=== PATIENT | male | born 1985 | race Caucasian/White ===

== ENCOUNTER 2020-06-26 22:01 | Inpatient (IN) | payer OTHER, SELFPAY ==
[~2020-06-26] VITALS: Ht 177.8 cm; Wt 111.6 kg
[2020-06-26 22:01] VITALS: BP_SYST 132
[~2020-06-26 22:01] MED LIST: BUSP5TAB3 PO; FOLI-43 PO; MULT-33 PO; PRO40 PO; TRAZ150T77 PO; Thiamine Hcl PO
--- NOTE | 2020-06-26 22:43 | NUR ---
ER Dr. PALACIOS at bedside examining patient.
[2020-06-26] MEDS ORDERED: NACL 0.9% 1,000 ML IV ONE ×2 (23:00)
[2020-06-26] MEDS ORDERED: ONDANSETRON HCL 4 MG/2 ML VIAL IVP ONE (23:00)
[2020-06-26] MEDS ORDERED: LORazepam 2 MG/ML VIAL IVP ONE (23:00)
[2020-06-26] MEDS ORDERED: IBUPROFEN 400 MG TABLET PO ONE (23:00)
[2020-06-26] MEDS ORDERED: cefTRIAXone 1 GM in D5W 50 ML IV ONE (23:30)
[2020-06-27 00:36] LABS: HEMOGLOBIN 11.5 g/dL (14.0-18.0)
[2020-06-27 00:42] LABS: BASOPHILS # (AUTO) 0.1 K/uL (0.0-0.2); BASOPHILS % (AUTO) 1.3 % (0.0-2.0); EOSINOPHILS # (AUTO) 0.2 K/uL (0.0-0.4); EOSINOPHILS % (AUTO) 4.6 % (0.0-4.0); HEMATOCRIT 33.7 % (36-54); LYMPHOCYTES # (AUTO) 0.7 K/uL (1.0-5.5); LYMPHOCYTES % (AUTO) 16.7 % (20.5-51.5); MEAN CORPUSCULAR HEMOGLOBIN 35 pg (27-31); MEAN CORPUSCULAR HGB CONC 34 % (32-36); MEAN CORPUSCULAR VOLUME 103 fL (79.0-98.0); MONOCYTES # (AUTO) 0.4 K/uL (0.0-1.0); NEUTROPHILS % (AUTO) 68.4 % (40.0-70.0); RED BLOOD CELL COUNT(AUTO) 3.28 MIL/uL (4.2-6.2); RED CELL DISTRIBUTION WIDTH 18.7 % (9.0-15.0); WHITE BLOOD COUNT (AUTO) 4.4 K/uL (4.8-10.8)
[2020-06-27 00:52] LABS: CALCIUM 7.5 mg/dL (8.4-11.0); CREATININE 0.53 mg/dL (0.55-1.30); POTASSIUM 3.1 mmol/L (3.5-5.1)
[2020-06-27 01:02] LABS: PLATELET COUNT (AUTO) 40 K/uL (130-430)
--- NOTE | 2020-06-27 01:02 | NUR ---
critical lab reporting - platelets 40. md aware.
[2020-06-27 01:04] LABS: ALBUMIN 2.4 g/dL (3.4-4.8); TOTAL BILIRUBIN 10.2 mg/dL (0.0-1.0)
--- NOTE | 2020-06-27 02:02 | NUR ---
COVID SWAB COLLECTED AND SENT TO LAB.
--- NOTE | 2020-06-27 02:42 | NUR ---
Patient will be admitted to care of [facility]. Admitted to MEDSURG unit. Will go to room PENDING. Belongings list completed. Complete and up to date summary report printed. SBAR report to be given at bedside with opportunity for questions.
--- NOTE | 2020-06-27 02:42 | NUR ---
RECEIVED ADMIT ORDERS FROM DR. RAM.
[2020-06-27] MEDS ORDERED: FOLIC ACID 1 MG, THIAMINE HCL 100 MG, MAGNESIUM SULFATE 1 GM, MVI 10 ML in NACL 0.9% 1,... IV ONE (02:45)
[2020-06-27] MEDS ORDERED: LORazepam 2 MG/ML VIAL IVP PRN ×2 (02:45→13:45)
[2020-06-27 09:30] LABS: INR 1.8 (0.80-1.20); PROTHROMBIN TIME 17.8 SECS (9.5-12.5)
--- NOTE | 2020-06-27 11:30 | NUR ---
CHRISTIANO TO ASSUME CARE, PT HERE FOR ETOH WITHDRAWL. SKIN JAUNDICED, CLEAR MENTATION AND SPEECH, EASILY AROUSED, [id number]
--- NOTE | 2020-06-27 12:20 | NUR ---
EASILY AROUSED, RESP UNLABORED, NO DISTRESS, CLEAR MENTATION
[2020-06-27 12:50] LABS: BARBITURATE, URINE NEGATIVE (NEG <=200); BENZODIAZEPINE, URINE POSITIVE (NEG <=150); CANNABINOID, URINE NEGATIVE (NEG <=50); COCAINE, URINE NEGATIVE (NEG <=150); METHAMPHETAMINES SCREEN,URINE NEGATIVE (NEG <=500); OPIATE, URINE NEGATIVE (NEG <=100); PHENCYCLIDINE SCREEN,URINE NEGATIVE (NEG <=25); UR TRICYCLIC ANTIDEPRESSANTS NEGATIVE (NEG <=300); URINE AMPHETAMINE NEGATIVE (NEG <=500); URINE METHADONE NEGATIVE (NEG <=200); URINE OXYCODONE SCREEN NEGATIVE (NEG <=100); URINE PROPOXYPHENE SCREEN NEGATIVE (NEG <=300)
[2020-06-27] MEDS ORDERED: FOLIC ACID 5 MG/ML VIAL IV ONE (13:21)
[2020-06-27] MEDS ORDERED: MVI 10 ML VIAL IV ONE (13:21)
[2020-06-27] MEDS ORDERED: THIAMINE HCL 100 MG/ML VIAL ONE (13:21)
[2020-06-27] MEDS ORDERED: MAGNESIUM SULFATE 1 GM/2 ML VIAL ONE (13:21)
[2020-06-27] MEDS ORDERED: cefTRIAXone 1 GM VIAL ONE (13:23)
[2020-06-27] MEDS ORDERED: IBUPROFEN 400 MG TABLET ONE (13:28)
[2020-06-27] MEDS ORDERED: NALOXONE HCL 0.4 MG/ML AMP (NARCAN) IVP PRN ×2 (13:45)
[2020-06-27] MEDS ORDERED: ACETAMINOPHEN 325 MG TABLET PO PRN (13:45)
[2020-06-27] MEDS ORDERED: HYDROcodone/ACETAMIN 5-325 MG TAB (NORCO/ VICODIN) PO PRN (13:45)
[2020-06-27] MEDS ORDERED: ONDANSETRON HCL 4 MG/2 ML VIAL IVP PRN (13:45)
[2020-06-27] MEDS ORDERED: HYDROcodone/ACETAMIN 10-325 MG TAB PO PRN (13:45)
--- NOTE | 2020-06-27 13:55 | NUR ---
DR RAM IN TO ASSESS
--- NOTE | 2020-06-27 15:48 | NUR ---
CALM, EASILY AROUSED, SLOW TO RESPOND, RESP UNLABORED,
[2020-06-27] MEDS ORDERED: chlordiazePOXIDE HCL 25 MG CAPSULE ONE (18:00)
[2020-06-27] MEDS: chlordiazePOXIDE HCL 25 MG CAPSULE PO SCH ×2 (18:00→21:52)
--- NOTE | 2020-06-27 18:05 | NUR ---
Patient will be admitted to care of [facility]. Admitted to M/S unit. Will go to room 104. Belongings list completed. Complete and up to date summary report printed. SBAR report to be given at bedside with opportunity for questions.
--- NOTE | 2020-06-27 18:33 | NUR ---
Admission Note Received patient from ER with diagnosis of Alcohol Withdrawal. Initial Plan of Care discussed-patient verbalized his understanding. Oriented to room, call light, pain management and safety. Call light within reach.
--- NOTE | 2020-06-27 19:50 | NUR ---
Opening note Received resting in bed, eyes closed, easy to arouse, no distress. Non labored breathing on 2L NC w/oxygen saturation at 94%. V/S taken and stable. Bed is locked in lowest position, side rails up 2x, bed alarm on and call light w/in reach. Updated board.
[2020-06-27 21:07] VITALS: BP_SYST 134
[2020-06-27] MEDS ORDERED: FLU VACC QS2020-21 (6 mos & up) 0.5 ML/SYRINGE I.M. PRN (21:30)
[2020-06-27] MEDS: busPIRone HCL 5 MG TABLET PO SCH (21:51)
[2020-06-27] MEDS: traZODone HCL 50 MG TABLET (DESYREL) PO SCH (21:52)
[2020-06-27] MEDS: PANTOPRAZOLE SODIUM 40 MG TAB PO SCH (21:52)
--- NOTE | 2020-06-27 21:52 | NUR ---
Meds, phys assessment Phys assessment complete. Due meds given, reviewed side effects and he verbalized understanding. I explained bed alarm for safety and he agreed to have it on. Requested additional blanketl; provided.
--- NOTE | 2020-06-27 23:58 | NUR ---
sleeping Patient resting w/eyes closed, no distress, non labored breathing. will continue to monitor.
--- NOTE | 2020-06-28 02:40 | NUR ---
urinal Patient awake, voided in urinal and emptied 600ml will ua. Fire alarm was on and loud a few minutes, though no longer on he requested door closed.
--- NOTE | 2020-06-28 04:30 | NUR ---
sleeping Patient resting w/ eyes closed, no distress and non labored breathing. Call light w/in reach.
[2020-06-28 05:15] VITALS: BP_SYST 120
--- NOTE | 2020-06-28 05:15 | NUR ---
v/s patient was momentarily awakened for V/S which are stable, he denies pain. Pictures taken. He wants a snack (provided) and wants to sleep. He said will save flu shot later in morning.
--- NOTE | 2020-06-28 06:29 | NUR ---
CONSULT REASON FOR CONSULT: PANYCTOPENIA DR. PEÑA CAME AND SAW THE PATIENT. CONSULTATION NOTES WERE PUT IN.
--- NOTE | 2020-06-28 07:10 | NUR ---
closing note endorsed report, patient stable, calm and resting in bed, no distress. He pulled out his IV and presently no IV access.
[2020-06-28] MEDS: busPIRone HCL 5 MG TABLET PO SCH ×2 (08:07→20:29)
[2020-06-28] MEDS: MULTIVITS,CA,MINERALS/IRON/FA 1 TABLET PO SCH (08:08)
[2020-06-28] MEDS: PANTOPRAZOLE SODIUM 40 MG TAB PO SCH ×2 (08:08→20:23)
[2020-06-28] MEDS: chlordiazePOXIDE HCL 25 MG CAPSULE PO SCH ×3 (08:08→20:23)
[2020-06-28] MEDS: FOLIC ACID 1 MG TABLET PO SCH (08:08)
[2020-06-28] MEDS: THIAMINE HCL 100 MG TABLET PO SCH (08:09)
[2020-06-28 08:15] VITALS: BP_SYST 125
[2020-06-28 09:36] LABS: ALBUMIN 2.1 g/dL (3.4-4.8); CALCIUM 7.6 mg/dL (8.4-11.0); CREATININE 0.48 mg/dL (0.55-1.30); PHOSPHORUS 2.6 mg/dL (2.7-4.5); POTASSIUM 3.6 mmol/L (3.5-5.1); TOTAL BILIRUBIN 11.2 mg/dL (0.0-1.0)
[2020-06-28 09:55] LABS: CORRECTED WHITE BLOOD COUNT 3.6 K/uL (4.5-11.0); RED BLOOD CELL COUNT(AUTO) 3.11 MIL/uL (4.2-6.2); WHITE BLOOD COUNT (AUTO) 3.6 K/uL (4.8-10.8)
[2020-06-28 09:56] LABS: HEMATOCRIT 32.2 % (36-54); HEMOGLOBIN 11.2 g/dL (14.0-18.0); MEAN CORPUSCULAR HEMOGLOBIN 36 pg (27-31); MEAN CORPUSCULAR HGB CONC 35 % (32-36); MEAN CORPUSCULAR VOLUME 104 fL (79.0-98.0); RED CELL DISTRIBUTION WIDTH 18.2 % (9.0-15.0)
[2020-06-28 09:57] LABS: BASOPHILS % (AUTO) 0.7 % (0.0-2.0); EOSINOPHILS # (AUTO) 0.2 K/uL (0.0-0.4); EOSINOPHILS % (AUTO) 5.6 % (0.0-4.0); LYMPHOCYTES # (AUTO) 0.7 K/uL (1.0-5.5); LYMPHOCYTES % (AUTO) 20.4 % (20.5-51.5); MONOCYTES # (AUTO) 0.3 K/uL (0.0-1.0); MONOCYTES % (AUTO) 8.3 % (1.7-9.3); NEUTROPHILS # (AUTO) 2.4 K/uL (1.8-7.7)
[2020-06-28 09:58] LABS: RETICULOCYTE COUNT 3.4 % (0.5-1.5)
--- NOTE | 2020-06-28 10:03 | NUR ---
Dr. Zenaida Kitchen for critical lab result platelets 31
--- NOTE | 2020-06-28 10:56 | NUR ---
IV RE-INSERTION: IV cannula accidentally removed business change manager site. Restarted on left wrist g24. . Successful after 3 attempts. Will observe for any signs of infiltration.
[2020-06-28 11:06] VITALS: BP_SYST 125
--- NOTE | 2020-06-28 11:58 | NUR ---
Nutrition Update Eze Scale 18 noted. Pt admitted for alcohol withdrawal. Diet: regular BMI: 35.3 kg/m2 RD to follow per nutrition care standards.
[2020-06-28 12:56] LABS: PLATELET COUNT (AUTO) 31 K/uL (130-430)
--- NOTE | 2020-06-28 13:08 | NUR ---
DR. Carreno is aware regarding the bruising in left flank.
[2020-06-28] MEDS: prednisoLONE 15 MG/5 ML UDC PO SCH (14:19)
[2020-06-28] MEDS ORDERED: NA PHOS 15 MM in NS 250 ML IV ONE (14:30)
[2020-06-28 15:00] VITALS: BP_SYST 102
--- NOTE | 2020-06-28 15:59 | NUR ---
Patient sleeping most of the time cooperative follow instruction, safety/fall /seizure precaution initiated
--- NOTE | 2020-06-28 19:35 | NUR ---
Opening note Received patient awake, resting in bed, no distress and watching t.v. Non labored breathing on RA, with saturation at 95%. V/S taken and stable. Presently denies pain. Bed is locked in lowest position, side rails up 2x, bed alarm on, seizure pad on, and call light w/in reach. Updated board and reviewed plan of care.
[2020-06-28 20:00] VITALS: BP_SYST 126
[2020-06-28] MEDS: traZODone HCL 50 MG TABLET (DESYREL) PO SCH (20:23)
--- NOTE | 2020-06-28 20:34 | NUR ---
Meds Due meds givenl; patient took meds with water. Patient agreed to flu shot and it was given along with information regarding side effects and written hand out, he verbalized understanding. Buspar was not administered d/t it was not available in pyxis. This medication is in eMar as scheduled med, yet it does not populate in medication pyxis. It was not in medication cubby either (yesterday it was in medication cubby). I called pharmacy and spoke w/ Lang. He re-entered med and it still did not appear/populate in pyxis.
--- NOTE | 2020-06-28 23:45 | NUR ---
Resting Patient resting quietly and no distress noted. Non labored breathing, call light w/in reach.
--- NOTE | 2020-06-29 01:41 | NUR ---
rounds/sleeping Patient resting w/eyes closed, no distress noted. Non labored breathing. Emptied 600 ml of will/orange UA from urinal. Call light w/in reach, safety and seizure precautions in place.
[2020-06-29 04:31] VITALS: BP_SYST 110
--- NOTE | 2020-06-29 04:31 | NUR ---
rounds, V/S Patient resting w/eyes closed, no distress noted and non labored breathing. Momentarily awakened for V/S B/P 110/53. Denies pain and has no requests. Call light w/in reach, safety and seizure precautions in place.
--- NOTE | 2020-06-29 06:50 | NUR ---
closing note Patient resting in bed, w/eyes closed, no distress, Non labored breathing on RA., Safety and seizure precautions maintained and call light w/in reach. Needs met throughout shift, will endorse care to day shift nurse.
[2020-06-29] MEDS ORDERED: busPIRone HCL 5 MG TABLET ONE (08:16)
[2020-06-29] MEDS: PANTOPRAZOLE SODIUM 40 MG TAB PO SCH (08:19)
[2020-06-29] MEDS: MULTIVITS,CA,MINERALS/IRON/FA 1 TABLET PO SCH (08:19)
[2020-06-29] MEDS: FOLIC ACID 1 MG TABLET PO SCH (08:19)
[2020-06-29] MEDS: THIAMINE HCL 100 MG TABLET PO SCH (08:19)
[2020-06-29] MEDS: busPIRone HCL 5 MG TABLET PO SCH (08:19)
[2020-06-29] MEDS: prednisoLONE 15 MG/5 ML UDC PO SCH (08:19)
[2020-06-29] MEDS: chlordiazePOXIDE HCL 25 MG CAPSULE PO SCH (08:20)
[2020-06-29 08:24] VITALS: BP_SYST 114
[2020-06-29 11:11] LABS: ALBUMIN 2.1 g/dL (3.4-4.8); CALCIUM 7.7 mg/dL (8.4-11.0); CREATININE 0.68 mg/dL (0.55-1.30); POTASSIUM 3.5 mmol/L (3.5-5.1); TOTAL BILIRUBIN 9.9 mg/dL (0.0-1.0)
[2020-06-29 11:16] LABS: BASOPHILS % (AUTO) 0.9 % (0.0-2.0); EOSINOPHILS # (AUTO) 0.1 K/uL (0.0-0.4); EOSINOPHILS % (AUTO) 1.5 % (0.0-4.0); HEMATOCRIT 32.4 % (36-54); HEMOGLOBIN 11.1 g/dL (14.0-18.0); LYMPHOCYTES # (AUTO) 0.6 K/uL (1.0-5.5); LYMPHOCYTES % (AUTO) 13.3 % (20.5-51.5); MEAN CORPUSCULAR HEMOGLOBIN 35 pg (27-31); MEAN CORPUSCULAR HGB CONC 34 % (32-36); MEAN CORPUSCULAR VOLUME 104 fL (79.0-98.0); MONOCYTES # (AUTO) 0.2 K/uL (0.0-1.0); MONOCYTES % (AUTO) 5.1 % (1.7-9.3); NEUTROPHILS # (AUTO) 3.8 K/uL (1.8-7.7); NEUTROPHILS % (AUTO) 79.2 % (40.0-70.0); RED BLOOD CELL COUNT(AUTO) 3.12 MIL/uL (4.2-6.2); RED CELL DISTRIBUTION WIDTH 17.8 % (9.0-15.0); WHITE BLOOD COUNT (AUTO) 4.8 K/uL (4.8-10.8)
[2020-06-29 11:42] LABS: PLATELET COUNT (AUTO) 38 K/uL (130-430)
[2020-06-29 12:03] VITALS: BP_SYST 116
--- NOTE | 2020-06-29 13:30 | NUR ---
Seen and examined by the admitting doctor and administrative assistant with order to discharge patient home today patient agreed, no seizure activity since admission, ambulate with steady gait.
[2020-06-29 14:05] VITALS: BP_SYST 118
--- NOTE | 2020-06-29 14:30 | NUR ---
D/C Patient Patient given medication reconciliation form and D/C instructions. Exit Care provided. Patient verbalized understanding. MD discussed with patient the results and treatment provided. Ambulatory with steady gait for discharge to home. Patient in stable condition, ID band removed. IV catheter removed, intact and dressing applied, no active bleeding. Patient educated on being compliant to medication, no alcohol drink, safety for alcohol withdrawal. All belongings sent with patient., Taxi voucher arranged by the nursing fertilizer supervisor,manager social spoke to patient list of senior living and assistance to homeless needs given.
--- NOTE | 2020-06-29 15:30 | NUR ---
SS notes WOOL HAT FINISHER spoke to patient just prior to being discharged. Pt stated yes he had been at [facility] a few weeks ago. Patient stated he had issues with his broken car and will need a taxi voucher to get back to the [place] [facility]. Patient denied being suicidal. WOOL HAT FINISHER shared with him the homeless packet and explained the programs in the packet. WOOL HAT FINISHER explained the AA program and how easy it was to access and participate in the AA meetings over the phone. WOOL HAT FINISHER asked patient to call and get a therapist for counseling. Patient thanked WOOL HAT FINISHER.
--- NOTE | 2020-06-29 15:32 | NUR ---
Discharged home via taxi with all the belongings taken.
== END 2020-06-29 15:32 | disposition home or self-care (01) | DRG 280 ==
LOC: SED 22:10 → SMU 06-27 02:40
PROVIDERS: ADMIT Preventive Medicine Preventive Medicine/Occupational Environmental Medicine; ATTEND Preventive Medicine Preventive Medicine/Occupational Environmental Medicine
DX: K70.10 Alcoholic hepatitis without ascites (principal); K70.30 Alcoholic cirrhosis of liver without ascites; F10.131 Alcohol abuse with withdrawal delirium; Y90.9 Presence of alcohol in blood, level not specified; D72.819 Decreased white blood cell count, unspecified; D64.9 Anemia, unspecified; D61.818 Other pancytopenia; D69.6 Thrombocytopenia, unspecified; E83.51 Hypocalcemia; E87.2 Acidosis; R73.9 Hyperglycemia, unspecified; E80.6 Other disorders of bilirubin metabolism; R74.01 Elevation of levels of liver transaminase levels; E88.09 Other disorders of plasma-protein metabolism, not elsewhere classified; F13.10 Sedative, hypnotic or anxiolytic abuse, uncomplicated; E43 Unspecified severe protein-calorie malnutrition; D73.1 Hypersplenism; E83.52 Hypercalcemia; K76.6 Portal hypertension; E87.6 Hypokalemia; D68.9 Coagulation defect, unspecified; Z20.828 Contact with and (suspected) exposure to other viral communicable diseases
CPT/HCPCS: 36415; 80053; 80307; 83010; 83605; 83615-TC; 83690-TC; 83735-TC; 84100-TC; 85025; 85044-TC; 85384-TC; 85610-TC; 85730-TC; 87040-TC; 99291; G0482; J0696; J2060; J2405; J3411; J3475; J3490; J7050